=== PATIENT | female | born 1975 | race Caucasian/White ===

== ENCOUNTER 2022-08-01 19:51 | Emergency (ER) | payer OTHER ==
[2022-08-01 20:07] VITALS: O2SAT 99
[2022-08-01] MEDS ORDERED: Vibramycin 100 MG ONE (20:33)
[2022-08-01] MEDS ORDERED: KEFLEX 500 MG ONE (20:33)
[2022-08-01] MEDS: Vibramycin 100 MG PO ONE (20:34)
[2022-08-01] MEDS: KEFLEX 500 MG PO ONE (20:34)
--- NOTE | 2022-08-01 20:35 | ERPHSYRPT ---
- History of Present Illness Source: patient Exam Limitations: no limitations Patient Subjective Stated Complaint: pt states on saturday she began having some pain and redness to her rt arm. states redness has been getting progressively larger. states pain is aching and skin is very tender to touch. Triage Nursing Assessment: pt alert and oriented, answers questions approp. pt ambulatory with steady gait nted. respirations nonlabored. skin warm and dry. redness and tenderness to rt inner arm and extending up to axilla and to mid rt forearm. radial pulse and cap refill wnl. pt denies any numbness or tingling. movement to rt upper ext wnl. Physician History: 47yo wf w RUE rash/pain x 2 days. Pt went to [facility] today and had a CBC/RUE doppler which were both negative. Pt is on PCN for a dental infection at the present. She states that the pain started on Saturday which proceeded the rash. Pain is mild to moderate at this time. She denies trauma/fever/ST/N/V/Diarrhea. The rash is localized to her L arm medially superior and inferior to the olecranon. She has had no recent IV's or blood work in her RUE. She is R handed. Timing/Duration: other (2 days) Quality: painful Severity: moderate Location: extremities (RUE) Possible Causes: no cause identified Modifying Factors: Improves With: other (Nothing) Associated Symptoms: denies symptoms Allergies/Adverse Reactions: acetaminophen [From Vicodin] Adverse Reaction (Mild, Verified 08/01/22 20:56) Nausea and Vomiting hydrocodone bitartrate [From Vicodin] Adverse Reaction (Mild, Verified 08/01/22 20:56) Nausea and Vomiting Home Medications: Penicillin V Potassium 500 mg PO TID 08/01/22 [History] Hx Tetanus, Diphtheria Vaccination/Date Given: Yes Hx Influenza Vaccination/Date Given: Yes Hx Pneumococcal Vaccination/Date Given: No Immunizations Up to Date: Yes Travel Risk - International Travel Have you traveled outside of the country in past 3 weeks: No - Coronavirus Screening Are you exhibiting any of the following symptoms?: No Close contact with a COVID-19 positive Pt in past 14-21 Days: No - Vaccine Status Have you recieved a Covid-19 vaccination: Yes [employer]: [employer] - Review of Systems Constitutional: No Symptoms Eyes: No Symptoms Ears, Nose, & Throat: No Symptoms Respiratory: No Symptoms Cardiac: No Symptoms Abdominal/Gastrointestinal: No Symptoms Genitourinary Symptoms: No Symptoms Musculoskeletal: No Symptoms Neurological: No Symptoms Psychological: No Symptoms Endocrine: No Symptoms Hematologic/Lymphatic: No Symptoms Immunological/Allergic: No Symptoms - Past Medical History Pertinent Past Medical History: Yes Neurological History: Other ENT History: No Pertinent History Cardiac History: No Pertinent History Respiratory History: No Pertinent History Endocrine Medical History: No Pertinent History Musculoskeletal History: Other GI Medical History: Gallbladder Disease History: No Pertinent History Psycho-Social History: No Pertinent History Female Reproductive Disorders: No Pertinent History Other Medical History: RUPTURED C6-C7 REQUIRING SURGERY 11/2014. CHOLECYSTECTOMY, HYSTERECTOMY - Past Surgical History Past Surgical History: Yes Neuro Surgical History: No Pertinent History Cardiac: No Pertinent History Respiratory: No Pertinent History Gastrointestinal: Cholecystectomy Genitourinary: No Pertinent History Musculoskeletal: No Pertinent History Female Surgical History: Hysterectomy, Tubal Ligation Other Surgical History: sinus surgery, c6, 7 surgery - Social History Smoking Status: Current every day smoker How long have you smoked: 20 years Exposure to second hand smoke: Yes Drug Use: none Patient Lives Alone: No - Female History Hx Last Menstrual Period: hyster Hx Now: No - Nursing Vital Signs Nursing Vital Signs: Initial Vital Signs Temperature 97.7 F 08/01/22 19:56 Pulse Rate 104 H 08/01/22 19:56 Respiratory Rate 16 08/01/22 19:56 Blood Pressure 130/81 08/01/22 19:56 O2 Sat by Pulse Oximetry 99 08/01/22 19:56 Pain Scale Pain Intensity 4 Mildly tachy - Physical Exam General Appearance: no apparent distress Eye Exam: PERRL/EOMI, eyes nml inspection Ears, Nose, Throat Exam: normal ENT inspection, TMs normal, pharynx normal, moist mucous membranes, No pharyngeal erythema Neck Exam: normal inspection, non-tender, supple, full range of motion, No meningismus, No mass, No Brudzinski, No Kernig's, No carotid bruit Respiratory Exam: normal breath sounds, lungs clear, airway intact Cardiovascular Exam: regular rate/rhythm, normal heart sounds, normal peripheral pulses, capillary refill <2 sec, No murmur Gastrointestinal/Abdomen Exam: soft, No tenderness Back Exam: normal inspection Extremity Exam: other (Linear erythema medial aspect of RUE superior and inferior to olecranon/Mild TTP/scattered areas of ecchymosis/No lesions to suggest Varicella at this time/Good radial pulse, distal sensation, and capillary return) Neurologic Exam: alert, oriented x 3, cooperative, 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, normal mood/affect, nml cerebellar function, nml station & gait, sensation nml, No motor deficits, No sensory deficit Skin Exam: warm, dry, rash Lymphatic Exam: No adenopathy SpO2 Interpretation: normal SpO2: 99 O2 Delivery: Room Air - Course Nursing assessment & vital signs reviewed: Yes Ordered Tests: Medication Summary Discontinued Medications Generic Name Dose Route Start Last Admin Trade Name Freq PRN Reason Stop Dose Admin Cephalexin HCl 500 mg 08/01/22 20:29 08/01/22 20:34 Cephalexin Mh500 Mg Capsule PO 08/01/22 20:30 500 mg STAT ONE Administration Cephalexin HCl Confirm 08/01/22 20:33 Cephalexin Mh500 Mg Capsule Administered 08/01/22 20:34 Dose 500 mg .ROUTE .STK-MED ONE Doxycycline Hyclate 100 mg 08/01/22 20:28 08/01/22 20:34 Doxycycline Hyclate 100 Mg Tablet PO 08/01/22 20:29 100 mg STAT ONE Administration Doxycycline Hyclate Confirm 08/01/22 20:33 Doxycycline Hyclate 100 Mg Tablet Administered 08/01/22 20:34 Dose 100 mg .ROUTE .STK-MED ONE - Progress Progress Note: 08/01/22 20:38 Rash in a linear pattern which possibly follow a vein/Varicella Zoster considered but no lesions to indicate at this time/Most likely thrombophlebitis vs cellulits w minor possibility of early varicella zoster 08/01/22 21:08 Labs/US reviewed from today and wnl 08/01/22 22:42 Doxycycline/Keflex for possible cellulitis Pt given Diflucan because she is susceptible to candidiasis Pt given Valtrex in case condition is early Varicella Zoster. She is to start it if vesicular lesions develop. Counseled pt/family regarding: diagnosis, need for follow-up - Departure Departure Disposition: Home Clinical Impression: Thrombophlebitis Condition: Stable Critical Care Time: No Referrals: MANUEL MATHIS NP [Primary Care Provider] - Follow up/PCP as directed Instructions: Phlebitis (DC), Cellulitis (Skin Infection), Adult (DC) Additional Instructions: Follow up with your family MD Continue w Doxycline twice a day for 1 week Keflex three times a day for 1 week Diflucan as needed Start Valtrex if any signs of shingles Return to ER for increasing redness/swelling/pain/temperature greater than 100.5 Prescriptions: Fluconazole [Diflucan] 150 mg PO DAILY PRN #3 tablet PRN Reason: rash Doxycycline Monohydrate 100 mg PO BID 7 Days #14 cap Cephalexin Mh 500 mg [Keflex 500 mg] 500 mg PO TID 7 Days #21 cap Valacyclovir HCl [Valtrex] 1,000 mg PO TID #21 tablet
[2022-08-01 20:56] VITALS: BP 121/74; PULSE 71
== END 2022-08-01 20:55 | disposition home or self-care (01) ==
LOC: ED 19:51
DX: I80.8 Phlebitis and thrombophlebitis of other sites (principal); M79.601 Pain in right arm
CPT/HCPCS: 99282; A9270-GY

== ENCOUNTER 2025-02-01 06:00 | Day surgery (SDC) | payer OTHER, BC ==
[2025-02-01] MEDS: Lactated Ringers 1,000 ML IV SCH (06:41)
[2025-02-01] MEDS ORDERED: propofoL IV ONE ×2 (07:55→08:22)
[2025-02-01] MEDS ORDERED: Xylocaine-Mpf 2% 5 Ml Vial ONE (07:55)
[2025-02-01 08:56] VITALS: PULSE 60; TEMP 97.6; O2SAT 100
[2025-02-01 09:08] VITALS: BP 96/54; RESP 18
--- NOTE | 2025-02-01 14:42 | OP ---
SURGERY DATE/TIME: 02/01/2025 [id number] PREOPERATIVE DIAGNOSIS: Screening exam. POSTOPERATIVE DIAGNOSIS: Transverse colon polyp. PROCEDURE: Colonoscopy with cold forceps biopsy. SURGEON: Richard Hernandez MD ANESTHESIA: Medication given by anesthesia department. HISTORY: The patient is a 49-year-old white female presenting now for her first screening colonoscopy. She was apprised of the risks of the procedure including risk of perforation, phlebitis, untoward reaction, bleeding and missed lesions. The patient verbalized her understanding and desired to have procedure performed. DESCRIPTION OF PROCEDURE AND FINDINGS: The patient was given medication by the anesthesia department. She had continuous pulse oximetry, ECG monitoring, and intermittent blood pressure monitoring during the examination. She was placed in left lateral decubitus position. Digital rectal examination was performed and revealed normal anal sphincter tone and no masses. The flexible Olympus colonoscope was used to intubate the rectum. A view of the colon was developed sequentially to the cecum. Upon insertion and withdrawal, was noted small polyp in the transverse colon. This was biopsied using cold forceps biopsy technique to destroy the lesion. No other mucosal lesions being encountered, the scope was removed. The patient tolerated the procedure well and sent back to outpatient recovery in good condition. The prep was noted to be fair to good.
== END 2025-02-01 09:15 | disposition home or self-care (01) ==
LOC: SDC 06:00
PROVIDERS: ATTEND Family Medicine
DX: Z12.11 Encounter for screening for malignant neoplasm of colon (principal); D12.3 Benign neoplasm of transverse colon
CPT/HCPCS: J2704